=== PATIENT | male | born 1995 | race Caucasian/White ===

== ENCOUNTER → 2019-12-21 | Outpatient (CLI) | payer OTHER ==
--- NOTE | 2019-12-21 13:22 | MR ---
EXAMINATION TYPE: MR knee LT wo con DATE OF EXAM: 12/21/2019 COMPARISON: None HISTORY: lt knee pain TECHNIQUE: Multiplanar, multisequence imaging of the left knee is performed without IV contrast. FINDINGS: MEDIAL MENISCUS: There is a radial tear of the free edge of the posterior horn of the medial meniscus . There is also tear of the anterior horn with a flipped fragment seen towards the intercondylar notc h. LATERAL MENISCUS: There is a longitudinal tear of the posterior horn of the lateral meniscus extendin g into the meniscal body. CRUCIATE LIGAMENTS: The anterior and posterior cruciate ligaments are intact. Anterior cruciate ligam ent is thickened diffusely. COLLATERAL LIGAMENTS: The medial collateral ligament and lateral collateral ligament complex are inta ct and unremarkable. EXTENSOR MECHANISM: Visualized quadriceps and patellar tendons are intact. EFFUSION: Small suprapatellar joint effusion. POPLITEAL CYST: Small septated popliteal fossa cyst. TRICOMPARTMENT SPACES: Aligned. BONE MARROW SIGNAL AND CARTILAGE: There is a small area of bone marrow edema of the lateral femoral c ondyle measuring approximately 1.0 x 0.8 cm at the lateral weightbearing surface. There is also abnor mal concave border of the cortex at this location suggesting early osteochondral defect. The cartilag e is slightly thinned at this location focally. There is also very mild thinning of the cartilage of the anterior weightbearing surface of the lateral femoral condyle. The medial compartment cartilage is unremarkable as is the patellofemoral cartilage. OTHER: Multiloculated ganglion is seen posterior to the superior aspect of the lateral femoral condy le. There is fluid surrounding the popliteus tendon with distal tendon thickening indicative of tenos ynovitis. IMPRESSION: 1. Radial tear of the free edge of the posterior horn of the medial meniscus and tear of the anterior horn of the medial meniscus with flipped fragment seen towards the intercondylar notch. 2. Longitudinal tear of the posterior horn of the lateral meniscus extending into the meniscal body. 3. Small focal area of bone marrow edema of the weightbearing surface of the lateral femoral condyle at its lateral aspect measuring 1.0 x 0.8 cm. Additionally abnormal concave border at this location s uggest early osteochondral defect within the underlying cartilage. 4. Tenosynovitis of the popliteus muscle. 5. Thickened anterior cruciate ligament suggesting low grade sprain. No discontinuity.
== END | disposition home or self-care (01) ==
LOC: RADMRIMAIN 10:46
PROVIDERS: ATTEND Orthopaedic Surgery
DX: S83.242A Other tear of medial meniscus, current injury, left knee, initial encounter (principal); S83.282A Other tear of lateral meniscus, current injury, left knee, initial encounter; M65.862 Other synovitis and tenosynovitis, left lower leg